=== PATIENT | male | born 1995 | race Caucasian/White ===

== ENCOUNTER 2019-07-02 18:37 | Emergency (ER) | payer SELFPAY ==
[2019-07-02 18:41] VITALS: BP 144/80; PULSE 80; RESP 20; TEMP 36.8; O2SAT 100
--- NOTE | 2019-07-02 19:15 | ED.GENADULT ---
HPI - General Adult General Chief complaint: Unspecified <Pretty Green PA-C - Last Filed: 07/02/19 19:22> Stated complaint: POISON LEXX EXPOSURE <Pretty Green PA-C - Last Filed: 07/02/19 19:22> Time Seen by Provider: 07/02/19 18:46 <Pretty Green PA-C - Last Filed: 07/02/19 19:22> Source: patient <Pretty Green PA-C - Last Filed: 07/02/19 19:22> Mode of arrival: ambulatory <Pretty Green PA-C - Last Filed: 07/02/19 19:22> Limitations: no limitations <Pretty Green PA-C - Last Filed: 07/02/19 19:22> History of Present Illness HPI narrative: This is a 23-year-old male that presents the emergency department for itchy rash since this afternoon. 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 Reports later in the afternoon he started to develop itchy rash. Reports he was told that there was poison lexx at the site. Reports the rashes on his neck, abdomen and chest. Denies fever. <Pretty Green PA-C - Last Filed: 07/02/19 19:22> Related Data Allergies/adverse reactions: Allergies Allergy/AdvReac Type Severity Reaction Status Date / Time No Known Allergies Allergy Unverified 08/02/14 17:32 <Pretty Green PA-C - Last Filed: 07/02/19 19:22> Review of Systems Review of Systems: Narrative: CONSTITUTIONAL: Denies fever SKIN: Reports rash and itching. <Pretty Green PA-C - Last Filed: 07/02/19 19:22> All systems reviewed & are unremarkable except as noted in HPI and below <Pretty Green PA-C - Last Filed: 07/02/19 19:22> [facility] Social History Social History: Social History (Updated 07/02/19 @ 19:21 by Pretty Green PA-C) Smoking status: Current some day smoker Substance use: never Gender identity (if verbalized by the patient): Male <Pretty Green PA-C - Last Filed: 07/02/19 19:22> Exam Narrative: Exam Narrative: GENERAL: Well-appearing, well-nourished, and in no acute distress. HEAD: Normocephalic, atraumatic. EYES: EOMI. EXTREMITIES: Normal range of motion. No edema. SKIN: Warm, dry. Red, papular rash present on the chest, abdomen and neck NEURO: No focal deficits. Alert and oriented x3. PSYCH: Normal mood and affect <Pretty Green PA-C - Last Filed: 07/02/19 19:22> Course Vital Signs Vital signs: Vital Signs Temperature 36.8 C 07/02/19 18:41 Pulse Rate 80 07/02/19 18:41 Respiratory Rate 20 07/02/19 18:41 Blood Pressure 144/80 H 07/02/19 18:41 Pulse Oximetry 100 07/02/19 18:41 Temperature 36.8 C 07/02/19 18:41 Pulse Rate 80 07/02/19 18:41 Respiratory Rate 20 07/02/19 18:41 Blood Pressure 144/80 H 07/02/19 18:41 Pulse Oximetry 100 07/02/19 18:41 <Pretty Green PA-C - Last Filed: 07/02/19 19:22> Vital Signs Temperature 36.8 C 07/02/19 18:41 Pulse Rate 80 07/02/19 18:41 Respiratory Rate 20 07/02/19 18:41 Blood Pressure 144/80 H 07/02/19 18:41 Pulse Oximetry 100 07/02/19 18:41 Temperature 36.8 C 07/02/19 18:41 Pulse Rate 80 07/02/19 18:41 Respiratory Rate 20 07/02/19 18:41 Blood Pressure 144/80 H 07/02/19 18:41 Pulse Oximetry 100 07/02/19 18:41 <Gustavo Carl MD - Last Filed: 07/02/19 21:17> Medical Decision Making MDM Narrative Medical decision making narrative: Patient presents to the emergency department for contact dermatitis. Was at job site and reports exposure to poison lexx. Patient was instructed on oral antihistamines. He will be prescribed a steroid taper. He is to follow-up with primary care doctor. He was given warnings to return to the ER <Pretty Green PA-C - Last Filed: 07/02/19 19:22> Vital Signs Vital Signs: Vital Signs Temperature 36.8 C 07/02/19 18:41 Pulse Rate 80 07/02/19 18:41 Respiratory Rate 20 07/02/19 18:41 Blood Pressure 144/80 H 07/02/19 18:41 Pulse Oximetry 100 07/02/19 18:41 Temperature 36.8 C 07/02/19 18:41 Pulse Rate 80 07/01/
== END 2019-07-02 19:37 | disposition home or self-care (01) ==
PROVIDERS: Emergency Provider Emergency Medicine
DX: L23.7 Allergic contact dermatitis due to plants, except food (principal); F17.200 Nicotine dependence, unspecified, uncomplicated
CPT/HCPCS: 99283

== ENCOUNTER 2019-08-02 12:21 | Emergency (ER) | payer SELFPAY ==
[2019-08-02 12:34] VITALS: BP 113/61; PULSE 113; RESP 16; TEMP 36.7; O2SAT 100
--- NOTE | 2019-08-02 12:56 | ED.EYEPROB ---
HPI - Eye Problem General Chief complaint: Eye Problems Stated complaint: right eye problems Time Seen by Provider: 08/02/19 12:49 Source: patient and RN notes reviewed Mode of arrival: ambulatory Limitations: no limitations History of Present Illness HPI Narrative: Patient presents today complaining of redness to the right eye with swelling of the eyelids x4 to 5 days. Denies vision changes, but does report photophobia. Denies foreign body sensation. Reports symptoms began after patient was working without safety goggles. He believes possibly a piece of PVC pipe could have entered his eye. He has tried to flush his eye out at home without relief of symptoms. MD chief complaint: eye redness Related Data Allergies Allergy/AdvReac Type Severity Reaction Status Date / Time No Known Allergies Allergy Unverified 08/02/14 17:32 Review of Systems Review of Systems: Narrative: CONSTITUTIONAL: Denies body aches, fever, chills, or sweats. EYES: Denies visual changes, or discharge.+ Tearing, right eye redness, swelling of the eyelids ENT: Denies rhinorrhea, congestion, sore throat, or otalgia. CARDIOVASCULAR: Denies chest pain, palpitations, or edema. RESPIRATORY: Denies cough or dyspnea. GASTROINTESTINAL: Denies abdominal pain, nausea, vomiting, or diarrhea. GENITOURINARY: Denies dysuria or hematuria. SKIN: Denies rash, itching, or wounds. MUSCULOSKELETAL: Denies back pain, joint pain, or myalgia. NEUROLOGIC: Denies headache, numbness, tingling, or weakness. PSYCH: Denies depression or anxiety. [facility] Social History Social History (Updated 07/02/19 @ 19:21 by Pretty Green PA-C) Smoking status: Current some day smoker Substance use: never Gender identity (if verbalized by the patient): Male Comments At time of signature, I have reviewed and agree with nursing past medical, surgical, social and family history unless otherwise noted. Please see nursing chart for further information. There is no relevant family history pertinent to the presenting complaint Exam Narrative: Exam Narrative: GENERAL: Well-appearing, well-nourished, and in no acute distress. HEAD: Normocephalic, atraumatic. EYES: EOMI. PERRL. right conjunctiva erythematous and edematous. Copious watering drainage. Upper and lower eyelids are slightly swollen. Lashes normal. Left eye normal ENT: Mucous membranes pink and moist. Nares clear. No rhinorrhea. TMs normal bilaterally. Throat normal. Uvula midline. NECK: Normal AROM. Supple. No lymphadenopathy. CHEST: No respiratory distress. EXTREMITIES: Normal range of motion. No edema. SKIN: Warm, dry, no rash. Capillary refill normal. Normal skin turgor. NEURO: No focal deficits. Alert and oriented x3. Gait steady. PSYCH: Normal affect. No signs of depression or anxiety. Course Vital Signs Vital signs: Vital Signs Temperature 98.0 F 08/02/19 12:34 Pulse Rate 113 H 08/02/19 12:34 Respiratory Rate 16 08/02/19 12:34 Blood Pressure 113/61 08/02/19 12:34 Pulse Oximetry 100 08/02/19 12:34 Temperature 98.0 F 08/02/19 12:34 Pulse Rate 113 H 08/02/19 12:34 Respiratory Rate 16 08/02/19 12:34 Blood Pressure 113/61 08/02/19 12:34 Pulse Oximetry 100 08/02/19 12:34 Reviewed Procedures Other Procedure Procedure 1: Other Procedure: Right eye was anesthetized with 1 drop of tetracaine and anesthesia was achieved. The eye was flushed with eye wash. Lid was inverted and examined. Moistened Qtip was used to sweep underneath the upper eyelid with 0 foreign bodies resulting. Cornea was dyed with fluorescein and 0 abrasions or ulcerations were noted. Pt tolerated procedure well. MDM - Eye Problem Differential Diagnosis Differential diagnosis: Likely corneal abrasion, conjunctivitis, acute iritis, periorbital cellulitis, subconjunctival hemorrhage, corneal ulcer and other (Foreign bodies) Critical Care Time Critical Care Time Critical Care Time: No Discharge
== END 2019-08-02 13:07 | disposition home or self-care (01) ==
PROVIDERS: Emergency Provider Nurse Practitioner
DX: H10.31 Unspecified acute conjunctivitis, right eye (principal); F17.200 Nicotine dependence, unspecified, uncomplicated
CPT/HCPCS: 99213; A9270; G0463

== ENCOUNTER 2019-08-21 20:04 | Emergency (ER) | payer SELFPAY ==
--- NOTE | ~2019-08-21 | XR_ITS ---
EXAMINATION: XR ankle RT min 3V DATE: 08/21/2019 20:29 INDICATION: Lateral right ankle pain and swelling post fall TECHNIQUE: Anteroposterior, oblique, mortise, and lateral views of the right ankle were obtained. COMPARISON: None. FINDINGS: Bone alignment is normal. 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 Joint spaces are normal . No right ankle joint effusion. Tiny plantar calcaneal spur. Prominent soft tissue swelling about th e lateral malleolus. IMPRESSION: 1. No acute osseous abnormality. Reviewed, dictated and finalized at location A.
[2019-08-21 20:12] VITALS: BP 126/75; PULSE 97; RESP 20; TEMP 37.1; O2SAT 100
--- NOTE | 2019-08-21 20:24 | ED.GENADULT ---
HPI - General Adult General Chief complaint: Extremity Injury, Lower <Damian Chin PA-C - Last Filed: 08/21/19 21:03> Stated complaint: right ankle injury <Damian Chin PA-C - Last Filed: 08/21/19 21:03> Time Seen by Provider: 08/21/19 20:08 <Damian Chin PA-C - Last Filed: 08/21/19 21:03> Source: patient <Damian Chin PA-C - Last Filed: 08/21/19 21:03> Mode of arrival: ambulatory <Damian Chin PA-C - Last Filed: 08/21/19 21:03> Limitations: no limitations <Damian Chin PA-C - Last Filed: 08/21/19 21:03> History of Present Illness HPI narrative: Patient is a 23-year-old male who presents to emergency department for evaluation of right ankle injury noting that he rolled the ankle while ambulating today just prior to arrival presents with bruising swelling and tenderness throughout the ankle joint worse with activity and movement patient notes that he has crutches at home has not taken anything for his pain <Damian Chin PA-C - Last Filed: 08/21/19 21:03> Related Data Home medications: Home Medications Medication Instructions Recorded Confirmed No Home Medications 08/21/19 08/21/19 <Damian Chin PA-C - Last Filed: 08/21/19 21:03> Allergies/adverse reactions: Allergies Allergy/AdvReac Type Severity Reaction Status Date / Time No Known Allergies Allergy Unverified 08/21/19 20:11 <Damian Chin PA-C - Last Filed: 08/21/19 21:03> Review of Systems Review of Systems: All systems reviewed & are unremarkable except as noted in HPI and below <Damian Chin PA-C - Last Filed: 08/21/19 21:03> [facility] Social History Social History: Social History Smoking status: Current some day smoker Substance use: never Gender identity (if verbalized by the patient): Male <KIRA Leija Last Filed: 08/21/19 21:03> Exam Narrative: Exam Narrative: GENERAL: Well-appearing, well-nourished, and in no acute distress. HEAD: Normocephalic, atraumatic. EYES: PERRLA and EOMI. ENT: Nares clear, no rhinorrhea or epistaxis. Mucous membranes moist. EXTREMITIES: Bruising swelling and tenderness of the right ankle joint worse with palpation SKIN: Warm, dry, no rash. NEURO: No focal deficits. Alert and oriented x3. Neurovascularly intact. Capillary refill less than 2 seconds PSYCH: Normal mood and affect. <Damian Chin PA-C - Last Filed: 08/21/19 21:03> Course Course Emergency Course: Patient in the room aware of case findings treatment plan and diagnosis <Damian Chin PA-C - Last Filed: 08/21/19 21:03> Vital Signs Vital signs: Vital Signs Temperature 37.1 C 08/21/19 20:12 Pulse Rate 97 08/21/19 20:12 Respiratory Rate 20 08/21/19 20:12 Blood Pressure 126/75 08/21/19 20:12 Pulse Oximetry 100 08/21/19 20:12 Temperature 37.1 C 08/21/19 20:12 Pulse Rate 97 08/21/19 20:12 Respiratory Rate 20 08/21/19 20:12 Blood Pressure 126/75 08/21/19 20:12 Pulse Oximetry 100 08/21/19 20:12 <Damian Chin PA-C - Last Filed: 08/21/19 21:03> Vital Signs Temperature 37.1 C 08/21/19 20:12 Pulse Rate 97 08/21/19 20:12 Respiratory Rate 20 08/21/19 20:12 Blood Pressure 126/75 08/21/19 20:12 Pulse Oximetry 100 08/21/19 20:12 Temperature 37.1 C 08/21/19 20:12 Pulse Rate 97 08/21/19 20:12 Respiratory Rate 20 08/21/19 20:12 Blood Pressure 126/75 08/21/19 20:12 Pulse Oximetry 100 08/21/19 20:12 <Marlene Dobbins MD - Last Filed: 08/21/19 22:03> Medical Decision Making MDM Narrative Medical decision making narrative: Patients injury or pain is consistent with musculoskeletal etiology. No signs of neurological or vascular compromise on exam. Compartments and tisues are soft without signs of compartment syndrome. Pain is felt appropriate for further evaluation on an ou
[2019-08-21] MEDS: IBUPROFEN 600 MG TABLET PO (20:25)
== END 2019-08-21 21:10 | disposition home or self-care (01) ==
PROVIDERS: Emergency Provider Emergency Medicine
DX: S93.401A Sprain of unspecified ligament of right ankle, initial encounter (principal); S96.911A Strain of unspecified muscle and tendon at ankle and foot level, right foot, initial encounter; F17.200 Nicotine dependence, unspecified, uncomplicated; X50.9XXA Other and unspecified overexertion or strenuous movements or postures, initial encounter
CPT/HCPCS: 73610; 99283; A9270